=== PATIENT | male | born 1945 | race Caucasian/White ===

== ENCOUNTER 2018-03-29 09:28 | Emergency (ER) | payer OTHER ==
[2018-03-29 09:54] VITALS: BP 140/80; PULSE 53; TEMP 97.4; BMI 27.3
[2018-03-29] MEDS ORDERED: ACETAMINOPHEN 325 MG TABLET (FP) PO ONE (11:09)
--- NOTE | 2018-03-29 11:09 | PDOC ---
History of Present Illness - General Chief Complaint: Back Pain Stated Complaint: BACK PAIN Time Seen by Provider: 03/29/18 10:47 History Source: Patient, Family Exam Limitations: No Limitations - History of Present Illness Initial Comments: 03/29/18 11:37 Patient and cousin came for evaluation of mid thoracic back pain. Cousin states was called by a tenant who noted patient to be in the backyard complaining of back pain. Was well dressed for the cold however wasn't moving well and tenant became concerned. Patient suffers from mild and early onset dementia and cousin and his are primary care providers.cOUSIN States receive patient and return him home after dinner each day. Dates she was well last night after his visit, was ambulatory without any complaints of pain problem patient denies fall , exercise change, any heavy lifting or strenuous activities. Denies any fever, denies problem with urine or bowels. Does not take any medication and is taken no medication for relief of symptoms. Occurred: reports: this morning Severity: reports: moderate Pain Location: reports: back Method of Injury: Yes: unknown Modifying Factors: improves with: None Loss of Consciousness: no loss of consciousness Associated Symptoms (Fall): denies symptoms Past History - Travel Traveled outside of the country in the last 30 days: No Close contact w/someone who was outside of country & ill: No - Past Medical History Allergies/Adverse Reactions: Allergies Allergy/AdvReac Type Severity Reaction Status Date / Time No Known Allergies Allergy Verified 03/29/18 09:53 Home Medications: Ambulatory Orders Naproxen [Naprosyn -] 500 mg PO BID #30 tablet 03/29/18 COPD: No Dementia: Yes - Suicide/Smoking/Psychosocial Hx Smoking History: Never smoked Have you smoked in the past 12 months: No Information on smoking cessation initiated: No Hx Alcohol Use: No Drug/Substance Use Hx: No Substance Use Type: None Review of Systems - Review of Systems Able to Perform ROS?: Yes Is the patient limited Salvadorean proficient: Yes Constitutional: Yes: Symptoms Reported, See HPI, Malaise. No: Fever, Loss of Appetite HEENTM: No: Symptoms Reported Respiratory: No: Symptoms reported Musculoskeletal: Yes: Symptoms Reported, See HPI, Back Pain (midthoracic back) Integumentary: No: Symptoms Reported Neurological: Yes: Symptoms reported, See HPI, Other (early-onset Alzheimer's) All Other Systems: Reviewed and Negative *Physical Exam - Vital Signs Last Vital Signs Temp Pulse Resp BP Pulse Ox 97.4 F L 53 L 18 140/80 99 03/29/18 09:51 03/29/18 09:51 03/29/18 09:51 03/29/18 09:51 03/29/18 09:51 - Physical Exam General Appearance: Yes: Nourished, Appropriately Dressed, Apparent Distress, Mild Distress (walks with mild slow gait due to pain) HEENT: positive: NKECHI, Normal ENT Inspection, Normal Voice, TMs Normal, Pharynx Normal Neck: positive: Supple. negative: Tender (tender with chronic immobilty) Respiratory/Chest: positive: Lungs Clear, Normal Breath Sounds Gastrointestinal/Abdominal: positive: Soft. negative: Tender, Distended, Guarding, Rebound Musculoskeletal: positive: Normal Inspection, Decreased Range of Motion, Muscle Spasm (tender tight muscle groups to mid thoracic spine/ back ). negative: CVA Tenderness (L), Vertebral Tenderness Extremity: positive: Normal Capillary Refill, Normal Inspection Integumentary: positive: Normal Color, Dry, Warm, Pale Neurologic: positive: wax molder II-XII NML intact, Fully Oriented (but slow to respond ), Normal Mood/Affect, Normal Response, Motor Strength 5/5 Moderate Sedation - Procedure Monitoring Vital Signs: Procedure Monitoring Vital Signs Temperature 97.4 F L 03/29/18 09:51 Pulse Rate 53 L 03/29/18 09:51 Respiratory Rate 18 03/29/18 09:51 Blood Pressure 140/80 03/29/18 09:51 O2 Sat by Pulse Oximetry (%) 99 03/29/18 09:51 Progress Note - Progress Note Progress Note: back strain urinalysis negative for UTI, and x-rays negative for thoracic fracture / dx/+ DJD *DC/Admit/Observation/Transfer Diagnosis at time of Disposition: Low back strain Qualifiers: Encounter type: initial encounter Qualified Code(s): S39.012A - Strain of muscle, fascia and tendon of lower back, initial encounter - Discharge Dispostion Disposition: HOME Condition at time of disposition: Stable Decision to Admit order: No - Prescriptions Prescriptions: Naproxen [Naprosyn -] 500 mg PO BID #30 tablet - Referrals Referrals: Princess Davey MD [Primary Care Provider] - - Patient Instructions Printed Discharge Instructions: DI for Back Strain or Sprain Additional Instructions: Rest, no heavy lifting or exercise until pain is resolved Hot soaks to neck and low back as often as possible/hot showers or Jacuzzis No massage or therapy until spasm is gone Continue Naprosyn 500 mg tablet, 1 tablet every 12 hours for the next 3 days then as needed for pain and swelling Cyclobenzaprine 1-10mg every 8 hours as needed for spasm If not significant improvement within 24 hours with medication and rest regime, followup with private physician for change in medications and /or therapy. - Post Discharge Activity
[2018-03-29] MEDS ORDERED: ACETAMINOPHEN 325 MG TABLET (FP) ONE (11:16)
[2018-03-29 11:23] LABS: URINE APPEARANCE CLEAR; URINE BILIRUBIN NEGATIVE (<2.0 mg/dL); URINE COLOR YELLOW; URINE GLUCOSE (UA) NEGATIVE (NEGATIVE); URINE KETONE NEGATIVE (NEGATIVE); URINE LEUK ESTERASE NEGATIVE (NEGATIVE); URINE NITRITE NEGATIVE (NEGATIVE); URINE PROTEIN NEGATIVE (NEGATIVE); URINE UROBILINOGEN NEGATIVE mg/dL (0.2-1.0)
== END 2018-03-29 13:27 | disposition home or self-care (01) ==
LOC: JERFT 09:28
DX: S39.012A Strain of muscle, fascia and tendon of lower back, initial encounter (principal); X58.XXXA Exposure to other specified factors, initial encounter; Y93.89 Activity, other specified; Y92.9 Unspecified place or not applicable; F03.90 Unspecified dementia, unspecified severity, without behavioral disturbance, psychotic disturbance, mood disturbance, and anxiety
CPT/HCPCS: 72070-TC-FY; 81003; 87086; 99281-25

== ENCOUNTER 2019-03-14 20:39 | Emergency (ER) | payer OTHER ==
[2019-03-14 20:58] VITALS: BP 125/80; PULSE 92; TEMP 98.5; BMI 22.8
--- NOTE | 2019-03-14 20:58 | PDOC ---
Attending Attestation - Resident Resident Name: VeeMendoza - ED Attending Attestation I have performed the following: I have examined & evaluated the patient, The case was reviewed & discussed with the resident, I agree w/resident's findings & plan - HPI HPI: 03/14/19 20:56 74-year-old male with history of severe Alzheimer's dementia, hyperlipidemia, depression presenting to the ED after being found wandering on the streets, unknown whereabouts since 11AM this morning.. He has a history of wandering due to his dementia but usually is found since he carries a phone with him but not today so family was unable to contact him. He was found in the neighborhood by a neighbor who called the family. No known trauma or falls, patient without any symptoms. He is currently at his baseline mental status per daughter at the bedside, usually oriented to person only and family. The patient was found in his usual state of health and mentation: unable to verbalize his whereabouts. No exterior sign of fall/trauma, clothes are dry, body is euthermic, patient in no acute distress. - Physicial Exam PE: 03/14/19 20:57 Agree with the resident's HPI and PE as documented in the electronic medical record. NAD, well appearing, oriented to person only; demented, pleasant elderly gentleman. EOMI, PERRL, nl conjunctiva, anicteric; neck supple. lungs clear, RRR, abdomen soft nontender. no rebound, guarding. Back nontender. YE x4, no focal neuro deficits. No peripheral edema. normal color for ethnicity, WWP. gait stable. 03/14/19 21:12 - Medical Decision Making 03/14/19 20:57 Vital signs reviewed within normal limits, patient is currently at his baseline mental status, oriented to person only, speech is clear, no focal deficits, no complaints, exam is otherwise unremarkable. No evidence of hypothermia or fever , no indication for imaging or labs. will discharge with family member at the bedside and this is likely due to his progressive dementia, safety precautions are encouraged and making sure he does not wander outdoors without supervision. Daughter is comfortable with the plan, safety precautions and PCP follow-up.
--- NOTE | 2019-03-14 21:01 | PDOC ---
History of Present Illness - History of Present Illness Initial Comments: 03/14/19 21:01 74m with pmh of Alzheimer's dementia brought in to the ED after having left the familial home on his own, unknown whereabouts since about 11am today. Was found wandering in the neighborhood by a neighbor who called the family. The patient was found in his usual state of health and mentation: unable to verbalize his whereabouts. No exterior sign of fall/trauma, clothes are dry, body is euthermic., patient in no acute distress. 03/14/19 21:05 According to daughter, patient does this often, but in general has in mobile phone with him and answers it. LAst time was last month. However today he didn' t have his phone with him. <Mendoza Baxter - Last Filed: 03/14/19 21:01> <Clari Jacome - Last Filed: 03/14/19 21:11> - General Chief Complaint: Weakness Stated Complaint: EXPOSURE TO COLD Time Seen by Provider: 03/14/19 20:47 Past History - Past Medical History COPD: No Dementia: Yes - Psycho Social/Smoking Cessation Hx Smoking History: Never smoked Have you smoked in the past 12 months: No Hx Alcohol Use: No Drug/Substance Use Hx: No Substance Use Type: None <Mendoza Baxter - Last Filed: 03/14/19 21:01> <Clari Jacome - Last Filed: 03/14/19 21:11> - Past Medical History Allergies/Adverse Reactions: Allergies Allergy/AdvReac Type Severity Reaction Status Date / Time No Known Allergies Allergy Verified 03/14/19 20:43 Home Medications: Ambulatory Orders Aspirin [ASA -] 81 mg PO DAILY 03/14/19 Atorvastatin Ca [Lipitor] 40 mg PO HS 03/14/19 Cyanocobalamin [Vitamin B12 -] 1,000 mcg PO DAILY 03/14/19 Donepezil HCl [Aricept -] 10 mg PO DAILY 03/14/19 Memantine HCl [Memantine HCl ER] 28 mg PO DAILY 03/14/19 Quetiapine Fumarate [Seroquel -] 25 mg PO QID 03/14/19 Sertraline HCl [Zoloft] 25 mg PO DAILY 03/14/19 traZODone HCL [Trazodone HCl] 50 mg PO HS 03/14/19 Review of Systems - Review of Systems Able to Perform ROS?: No (Advanced dementia) <Mendoza Baxter - Last Filed: 03/14/19 21:01> *Physical Exam - Vital Signs Last Vital Signs Temp Pulse Resp BP Pulse Ox 98.5 F 92 H 16 125/80 100 03/14/19 20:56 03/14/19 20:56 03/14/19 20:56 03/14/19 20:56 03/14/19 20:56 - Physical Exam General Appearance: Yes: Nourished, Appropriately Dressed. No: Apparent Distress HEENT: positive: EOMI, NKECHI, Normal ENT Inspection Respiratory/Chest: positive: Lungs Clear, Normal Breath Sounds. negative: Chest Tender, Respiratory Distress Cardiovascular: positive: Regular Rhythm, Regular Rate, S1, S2 Gastrointestinal/Abdominal: positive: Normal Bowel Sounds, Flat, Soft. negative : Tender Musculoskeletal: positive: Normal Inspection. negative: CVA Tenderness Extremity: positive: Normal Capillary Refill, Normal Inspection, Normal Range of Motion Integumentary: positive: Normal Color, Dry, Warm Neurologic: positive: Disoriented (at baseline) <Mendoza Baxter - Last Filed: 03/14/19 21:01> - Vital Signs Last Vital Signs Temp Pulse Resp BP Pulse Ox 98.5 F 92 H 16 125/80 100 03/14/19 20:56 03/14/19 20:56 03/14/19 20:56 03/14/19 20:56 03/14/19 20:56 <Clari Jacome - Last Filed: 03/14/19 21:11> Medical Decision Making - Medical Decision Making 03/14/19 21:05 74m with advanced dementia, wandered out of the house all day. Patient likely didn't stay out all day. Normal vitals, temp, clothjes are dry, no sign of injury after undressing the patient fully. At baseline per daughter. OK to discharge. <Mendoza Baxter - Last Filed: 03/14/19 21:01> Discharge - Discharge Information Problems reviewed: Yes - Admission No <Mendoza Baxter - Last Filed: 03/14/19 21:01> - Admission No <Clari Jacome - Last Filed: 03/14/19 21:11> - Discharge Information Clinical Impression/Diagnosis: Dementia in conditions classified elsewhere with wandering off Alzheimer's dementia Qualifiers: Alzheimer's disease onset: unspecified onset Dementia behavioral disturbance: without behavioral disturbance Qualified Code(s): G30.9 - Alzheimer's disease, unspecified; F02.80 - Dementia in other diseases classified elsewhere without behavioral disturbance Condition: Improved Disposition: HOME - Patient Discharge Instructions Patient Printed Discharge Instructions: DI for Alzheimer's Disease Additional Instructions: Come back to the emergency department for any new, worsening or concerning symptoms. Follow up with your primary care physician within the next 3 days. be sure to have safety measures and planning to avoid wandering off
== END 2019-03-14 21:13 | disposition home or self-care (01) ==
LOC: JER 20:39
DX: Z91.83 Wandering in diseases classified elsewhere (principal); G30.9 Alzheimer's disease, unspecified; F02.80 Dementia in other diseases classified elsewhere, unspecified severity, without behavioral disturbance, psychotic disturbance, mood disturbance, and anxiety; F05 Delirium due to known physiological condition
CPT/HCPCS: 99281-25